=== PATIENT | male | born 1995 | race American Indian/Alaskan Native ===

== ENCOUNTER 2019-05-19 13:30 | Emergency (ER) | payer SELFPAY ==
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
== END 2019-05-19 15:35 | disposition left against medical advice (07) ==
LOC: ED 13:30
DX: M79.10 Myalgia, unspecified site (principal); Z53.21 Procedure and treatment not carried out due to patient leaving prior to being seen by health care provider